=== PATIENT | female | born 1980 | race Caucasian/White ===

== ENCOUNTER 2022-11-15 13:04 | Observation (INO) ==
[2022-11-15] MEDS ORDERED: HYDROmorphone 1 MG/1 ML SYRINGE IV SLOW PU PRN (14:01)
[2022-11-15] MEDS ORDERED: Acetaminophen IV 1 GM/100ML 1,000 MG/100 ML BAG IV PRN (14:01)
[2022-11-15] MEDS ORDERED: Ondansetron 4 mg VIAL 2 MG/ML 2 ml VIAL IV PRN (14:02)
[2022-11-15] MEDS ORDERED: NS 0.9% 1000 ml BAG 1,000 ML IV SCH (14:15)
[2022-11-15] MEDS ORDERED: HYDROmorphone 0.5 MG/0.5 ML SYRINGE ONE (14:35)
[2022-11-15] MEDS ORDERED: Ondansetron 4 mg VIAL 2 MG/ML 2 ml VIAL ONE ×2 (14:44→19:05)
[2022-11-15] MEDS ORDERED: cefTRIAXone 2 gm/50 mL D5W 2 GM/50 ML BAG IV ONE (17:32)
[2022-11-15] MEDS ORDERED: fentaNYL 100 mcg/2 ml 50 MCG/ML VIAL IV PRN ×2 (17:56→19:50)
[2022-11-15] MEDS ORDERED: Naloxone 0.4 mg VIAL 0.4 mg/ml 1 ml VIAL IV PRN ×2 (17:56→19:52)
[2022-11-15] MEDS ORDERED: fentaNYL 100 mcg/2 ml 50 MCG/ML VIAL ONE (18:36)
[2022-11-15] MEDS ORDERED: Midazolam 2 mg/2 ml VIAL 1 mg/ml 2 ml VIAL (2 mg) ONE (18:36)
[2022-11-15] MEDS ORDERED: Propofol 10 MG/ML 20 ML BTL ONE ×2 (18:38→19:01)
[2022-11-15] MEDS ORDERED: Iohexol 180 (CONTRAST) 20 ML SDV IV ONE (19:46)
[2022-11-15 21:09] VITALS: BP 117/80
== END 2022-11-15 21:10 | disposition home or self-care (01) ==
LOC: SSU → UNDODISOB 19:49
PROVIDERS: ADMIT Internal Medicine; ATTEND Internal Medicine